=== PATIENT | male | born 1985 | race Caucasian/White ===

== ENCOUNTER 2016-09-09 17:38 | Emergency (ER) | payer OTHER ==
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
--- NOTE | 2016-09-09 21:19 | ED MED RECONCILIATION SUMMARY ---
Patient: YENNI IRAHETA Medication Reconciliation Report [facility] VisitID: [id number] [place] [address] 31y, M Registration Date/Time: 09/09/2016 Weight: 90.7 kg Height/Length: 75 in. BMI: 25.0 ALLERGIES: Sulfa Antibiotics The patient's Home Medications are listed below: THE FOLLOWING MEDICATIONS NEED TO BE RECONCILED: Mucinex D Oral ZyrTEC Allergy Childrens Oral The source(s) of the original Home Medication information: Not obtained. The following Medications were given to the patient in the Emergency Department: None. The following Medications were prescribed to the patient: Flexeril 10 mg: Take 1 orally every 8 hours as needed for muscle spasm. Dispense twenty (20). No refills. Substitution is permissible. -- Dorothy Larose, A.R.N.P. Ultram 50 mg tablets: take 1-2 orally every 6 hours as needed for pain. Dispense twenty (20). No refills. Substitution is permissible. -- Dorothy Larose, A.R.N.P.
--- NOTE | 2016-09-09 21:19 | ED MAR SUMMARY ---
..... Medication Administration Record [facility] [address] [place], [place] [id number] Patient: YENNI IRAHETA A Visit ID: [id number] 31y, M Weight: 90.7 kg Height/Length: 75 in BMI: 25 ALLERGIES: Sulfa Antibiotics
--- NOTE | 2016-09-09 21:19 | ED MAR SUMMARY ---
..... Medication Administration Record [facility] [address] [place], [place] [id number] Patient: YENNI IRAHETA A Visit ID: [id number] 31y, M Weight: 90.7 kg Height/Length: 75 in BMI: 25 ALLERGIES: Sulfa Antibiotics
--- NOTE | 2016-09-09 21:19 | ED MED RECONCILIATION SUMMARY ---
Patient: YENNI IRAHETA Medication Reconciliation Report [facility] VisitID: [id number] [place] [address] 31y, M Registration Date/Time: 09/09/2016 Weight: 90.7 kg Height/Length: 75 in. BMI: 25.0 ALLERGIES: Sulfa Antibiotics The patient's Home Medications are listed below: THE FOLLOWING MEDICATIONS NEED TO BE RECONCILED: Mucinex D Oral ZyrTEC Allergy Childrens Oral The source(s) of the original Home Medication information: Not obtained. The following Medications were given to the patient in the Emergency Department: None. The following Medications were prescribed to the patient: Flexeril 10 mg: Take 1 orally every 8 hours as needed for muscle spasm. Dispense twenty (20). No refills. Substitution is permissible. -- Dorothy Larose, A.R.N.P. Ultram 50 mg tablets: take 1-2 orally every 6 hours as needed for pain. Dispense twenty (20). No refills. Substitution is permissible. -- Dorothy Larose, A.R.N.P.
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
== END 2016-09-09 18:17 | disposition home or self-care (01) ==
LOC: ED SRH 17:38
DX: S16.1XXA Strain of muscle, fascia and tendon at neck level, initial encounter (principal); S00.03XA Contusion of scalp, initial encounter; F17.200 Nicotine dependence, unspecified, uncomplicated; V43.52XA Car driver injured in collision with other type car in traffic accident, initial encounter; Y93.89 Activity, other specified; Y92.410 Unspecified street and highway as the place of occurrence of the external cause; Y99.9 Unspecified external cause status